=== PATIENT | female | born 1980 | race Caucasian/White ===

== ENCOUNTER → 2020-09-13 11:09 | Outpatient (CLI) | payer OTHER, SELFPAY ==
--- NOTE | ~2020-09-13 | MM_ITS ---
EXAMINATION: MM screening [facility] BI w everette HISTORY: Screening mammogram TECHNIQUE: Craniocaudal and mediolateral oblique 3-D tomosynthesis images were obtained and synthetic 2-D images were generated. CAD analysis was submitted and interpreted. COMPARISON: 07/14/2019 BREAST PARENCHYMAL COMPOSITION: The breasts are heterogeneously dense, which may obscure small masses . FINDINGS: There is no evidence of suspicious mass, calcification, or architectural distortion to sugg est malignancy in either breast. There has been no suspicious interval change. IMPRESSION: 1. No mammographic evidence of malignancy. 2. Recommend routine screening mammography in one year. BI-RADS Category 1: Negative Reviewed, dictated and finalized at location A. LABOR SUPERVISOR
== END ==
PROVIDERS: Visit Provider Nurse Practitioner
DX: Z12.31 Encounter for screening mammogram for malignant neoplasm of breast (principal)
CPT/HCPCS: 77063; 77067

== ENCOUNTER → 2021-11-14 13:37 | Outpatient (CLI) | payer OTHER, SELFPAY ==
--- NOTE | ~2021-11-14 | MM_ITS ---
EXAMINATION: MM screening [facility] BI w everette HISTORY: Screening TECHNIQUE: Craniocaudal and mediolateral oblique 3-D tomosynthesis images were obtained and synthetic 2-D images were generated. CAD analysis was submitted and interpreted. COMPARISON: Comparison to multiple prior studies sequentially, with oldest reviewed study dated 07/2019. BREAST PARENCHYMAL COMPOSITION: There are scattered areas of fibroglandular density. FINDINGS: There is no evidence of suspicious mass, calcification, or architectural distortion to sugg est malignancy in either breast. There has been no suspicious interval change. IMPRESSION: 1. No mammographic evidence of malignancy. 2. Recommend routine screening mammography in one year. BI-RADS Category 1: Negative Reviewed, dictated and finalized at location A. F APPRAISER
== END ==
PROVIDERS: PCP Physician Assistant; Visit Provider Nurse Practitioner
DX: Z12.31 Encounter for screening mammogram for malignant neoplasm of breast (principal)
CPT/HCPCS: 77063; 77067

== ENCOUNTER → 2022-07-06 13:30 | Outpatient (CLI) | payer OTHER, SELFPAY ==
--- NOTE | ~2022-07-06 | XR_ITS ---
EXAMINATION: XR knee LT min 4V, XR knee RT min 4V DATE: 07/06/2022 13:57 INDICATION: Bilateral knee pain TECHNIQUE: 1. Weight bearing anteroposterior and Saeed, sunrise, and flexed lateral views of the right knee were obtained 2. Weight bearing anteroposterior and Saeed, sunrise, and flexed lateral views of the left knee w ere obtained COMPARISON: None. FINDINGS: Normal alignment at both knees. No fracture. Small marginal osteophytes in all 3 compartments of both knees. There is mild joint space narrowing in the lateral compartment of the right knee with the kne e in the flexed position. Joint spaces and remaining compartments of both knees remain within normal limits. Subarticular cystlike changes seen along the left patellar apical ridge. Small bilateral knee joint effusions. Soft tissues are otherwise unremarkable. IMPRESSION: 1. 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 2. Small bilateral knee joint effusions. Reviewed, dictated and finalized at location A. IMPRESSION: 1. Mild tricompartmental osteoarthritis of both knees with most prominent joint space are at the lateral compartment of the right knee and with likely high-gr ki chondromalacia with subarticular cystlike changes along the apical ridge of the left patella. 2. Small bilateral knee joint effusions.
== END ==
PROVIDERS: PCP Physician Assistant; Visit Provider Physician Assistant
DX: M17.0 Bilateral primary osteoarthritis of knee (principal); M25.461 Effusion, right knee; M25.462 Effusion, left knee
CPT/HCPCS: 73564

== ENCOUNTER → 2023-01-22 11:25 | Outpatient (CLI) | payer OTHER, SELFPAY ==
--- NOTE | ~2023-01-22 | MM_ITS ---
EXAMINATION: MM screening [facility] BI w everette HISTORY: Screening TECHNIQUE: Craniocaudal and mediolateral oblique 3-D tomosynthesis images were obtained and synthetic 2-D images were generated. CAD analysis was submitted and interpreted. COMPARISON: Comparison to multiple prior studies sequentially, with oldest reviewed study dated 07/2019. BREAST PARENCHYMAL COMPOSITION: There are scattered areas of fibroglandular density. FINDINGS: There is no evidence of suspicious mass, calcification, or architectural distortion to sugg est malignancy in either breast. There has been no suspicious interval change. IMPRESSION: 1. No mammographic evidence of malignancy. 2. Recommend routine screening mammography in one year. BI-RADS Category 1: Negative Reviewed, dictated and finalized at location A.
== END ==
PROVIDERS: PCP Physician Assistant; Visit Provider Nurse Practitioner
DX: Z12.31 Encounter for screening mammogram for malignant neoplasm of breast (principal)
CPT/HCPCS: 77063; 77067

== ENCOUNTER 2024-02-02 07:31 | Outpatient (CLI) | payer OTHER, SELFPAY ==
--- NOTE | ~2024-02-02 | US_ITS ---
Pelvic ultrasound. Clinical History: Abnormal uterine bleeding Technique: Realtime transabdominal scanning of the pelvis was performed. Color flow Doppler and Doppl er spectral analysis were performed. Findings: The uterus is anteverted. The endometrial stripe has a thickness of 4 mm. IUD in satisfact ory position. No focal mass is identified. The right ovary measures 2.6 x 3.8 x 1.2 cm. No significant right ovarian or adnexal mass is seen. The left ovary measures 3.9 x 2.0 x 2.0 cm. No significant left ovarian or adnexal mass is seen. There is no evidence of free fluid in the cul de sac. Impression: IUD in place, otherwise unremarkable exam. Reviewed, dictated and finalized at location M. Impression: IUD in place, otherwise unremarkable exam.
== END 2024-02-02 07:32 ==
PROVIDERS: PCP Advanced Practice Midwife; Visit Provider Advanced Practice Midwife
DX: N93.8 Other specified abnormal uterine and vaginal bleeding (principal); Z97.5 Presence of (intrauterine) contraceptive device
CPT/HCPCS: 76856

== ENCOUNTER 2024-07-03 09:03 | Day surgery (SDC) | payer OTHER, SELFPAY ==
[2024-06-13 10:29] VITALS: BMI 30.7
[2024-06-18 11:33] VITALS: BMI 29.2
[2024-07-03 10:07] VITALS: BP 124/90; PULSE 71; RESP 15; TEMP 37.4; O2SAT 98
[2024-07-03] MEDS: LACTATED RINGERS 1,000 ML 150 ML IV CONT (10:12)
--- NOTE | 2024-07-03 10:14 | PM.HPGS ---
History of Present Illness History of Present Illness Consent: Risks, benefits, and alternatives have been discussed and questions answered. Patient agrees to proceed with procedure. Chief complaint: Screening for neoplasm of colon Narrative: Scott Tony is a 43 year old female presents for screening colonoscopy. Patient's current weight appetite and bowel movements are normal. Patient denies abdominal pain. She has had no bleeding. Family history is noncontributory. Review of Systems Review of Systems: All systems reviewed & are unremarkable except as noted in HPI and below PMFSH Social History Social History Smoking status: Never smoker Alcohol intake: current Alcohol use details: 1 per month Substance use type: does not use Living arrangements: with family Spiritual care concerns: No Meds Home Medications and Allergies Home Medications Medication Instructions Recorded Confirmed Type cetirizine 5 mg-pseudoephedrine ER 1 tablet PO BID 06/18/24 07/03/24 History 120 mg tablet,extended release,12hr (Zyrtec-D) ferrous sulfate 325 mg (65 mg 325 mg PO DAILY 06/18/24 07/03/24 History iron) tablet multivitamin with minerals-folic 1 tablet PO DAILY 06/18/24 07/03/24 History acid 0.4 mg tablet sertraline 100 mg tablet 100 mg PO DAILY 06/18/24 07/03/24 History Allergies Allergy/AdvReac Type Severity Reaction Status Date / Time No Known Allergies Allergy Verified 07/03/24 10:05 Vital Signs Vital Signs - 24 hr 07/03/24 10:07 Temperature 99.3 F Pulse Rate 71 Respiratory Rate 15 Blood Pressure 124/90 Pulse Oximetry 98 Oxygen Delivery Room Air Exam Narrative: Physical exam reveals patient signs stable. HEENT exam is unremarkable. Patient is anicteric. Lungs are clear to auscultation and percussion heart is without murmur or extra sounds. Abdomen bowel sounds are present soft nontender with no organomegaly. Digital external rectal exam normal. Assessment and Plan Assessment and plan (1) Screen for colon cancer: Code(s): Z12.11 - Encounter for screening for malignant neoplasm of colon Status: Acute Assessment and Plan: Patient presents today for screening colonoscopy. She appears to be at average risk colon polyps. Further recommendations may be given after endoscopy.
--- NOTE | 2024-07-03 10:42 | WPDANESEPPF ---
Anes - Initial Pre Proc Eval Procedure: Operation Date: 07/03/24 11:30 Proposed Procedures p Screening Colonoscopy - Evgeny Ludwig MD Date/Time: 07/03/24 10:42 Surgeon: Evgeny Ludwig MD Pre Op Diagnosis: Screening for neoplasm of colon Patient Data Age: 43 Gender: F Height: 1.65 m Weight: 82.9 kg Last Vital Signs Temp 37.4 C 07/03/24 10:07 Pulse 71 07/03/24 10:07 Resp 15 07/03/24 10:07 BP 124/90 07/03/24 10:07 Pulse Ox 98 07/03/24 10:07 O2 Del Method Room Air 07/03/24 10:07 Allergies Allergy/AdvReac Type Severity Reaction Status Date / Time No Known Allergies Allergy Verified 07/03/24 10:05 Home Medications Medication Instructions Recorded Confirmed Type cetirizine 5 mg-pseudoephedrine ER 1 tablet PO BID 06/18/24 07/03/24 History 120 mg tablet,extended release,12hr (Zyrtec-D) ferrous sulfate 325 mg (65 mg 325 mg PO DAILY 06/18/24 07/03/24 History iron) tablet multivitamin with minerals-folic 1 tablet PO DAILY 06/18/24 07/03/24 History acid 0.4 mg tablet sertraline 100 mg tablet 100 mg PO DAILY 06/18/24 07/03/24 History Patient hx anesthesia problems: none Family hx anesthesia problems: none Results Review: All pre-operative results and documents have been reviewed as part of the pre-operative evaluation. COUNTS INCLUDE 234 BEDS AT THE [facility] Past Medical History Medical History (Updated 07/03/24 @ 10:42 by Yobani Molina MD) Obesity Surgical History Surgical History (Updated 07/03/24 @ 10:43 by Yobani Molina MD) H/O arthroscopic knee surgery History of bladder surgery Social History Social History Smoking status: Never smoker Alcohol intake: current Alcohol use details: 1 per month Substance use type: does not use Living arrangements: with family Spiritual care concerns: No Anes - Eval Final PreProcedure Day of Procedure 07/03/24 10:42 Patient weight: obese Heart: regular rate and rhythm Lungs: clear to auscultation Airway: Mallampati scale class II Neurological: alert and oriented Last oral intake: >/= 8 hours ASA classification: II Emergent: no Anesthetic plan: proceed Anesthesia type and monitoring: general GIVS and standard monitoring Results Review: All pre-operative results and documents have been reviewed as part of the pre-operative evaluation. Informed Consent: The patient's anesthetic plan and its attendant risks and benefits were discussed with the patient/family/POA. Questions were solicited and answers provided to the satisfaction of the patient/family/POA.
[2024-07-03 11:05] VITALS: BP 114/72; PULSE 72; RESP 15; O2SAT 97
[2024-07-03 11:15] VITALS: BP 119/74; PULSE 75; RESP 15; O2SAT 98
[2024-07-03 11:25] VITALS: BP 117/84; PULSE 64; RESP 15; O2SAT 99
--- NOTE | 2024-07-03 11:27 | WPDANESPN ---
Anes - Prog Note Post-Op Date/Time: 07/03/24 11:27 Cardiovascular status: normal Respiratory status: normal Airway patency: baseline Mental status: baseline Post-Op hydration status: normal Vital Signs: Last Vital Signs Temp 37.4 C 07/03/24 10:07 Pulse 75 07/03/24 11:15 Resp 15 07/03/24 11:15 BP 119/74 07/03/24 11:15 Pulse Ox 98 07/03/24 11:15 O2 Del Method Room Air 07/03/24 11:15 Pain Score (VAS): 0/10 I/O: Intake & Output 07/02/24 07/03/24 07/03/24 23:59 07:59 15:59 Intake Total 200 Balance 200 Patient Feedback: Patient satisfied with anesthetic care.
== END 2024-07-03 11:43 | disposition home or self-care (01) ==
PROVIDERS: PCP Physician Assistant; Visit Provider Internal Medicine Gastroenterology
PROC: 0DJD8ZZ Inspection of Lower Intestinal Tract, Via Natural or Artificial Opening Endoscopic (ICD-10-PCS; CPT 45378; principal; 2024-07-03 11:30)
DX: Z12.11 Encounter for screening for malignant neoplasm of colon (principal)
CPT/HCPCS: 45378

== ENCOUNTER 2024-08-19 07:42 | Outpatient (CLI) | payer OTHER, SELFPAY ==
--- NOTE | ~2024-08-19 | MM_ITS ---
EXAMINATION: MM screening [facility] BI w everette HISTORY: Screening TECHNIQUE: Craniocaudal and mediolateral oblique 3-D tomosynthesis images were obtained and synthetic 2-D images were generated. CAD analysis was submitted and interpreted. COMPARISON: Comparison to multiple prior studies sequentially, with oldest reviewed study dated 07/2020. BREAST PARENCHYMAL COMPOSITION: Not dense: There are scattered areas of fibroglandular density. FINDINGS: There is no evidence of suspicious mass, calcification, or architectural distortion to sugg est malignancy in either breast. There has been no suspicious interval change. IMPRESSION: 1. No mammographic evidence of malignancy. 2. Recommend routine screening mammography in one year. BI-RADS Category 1: Negative Reviewed, dictated and finalized at location B.
== END 2024-08-19 07:43 | disposition home or self-care (01) ==
LOC: MICIMG 07:42
PROVIDERS: PCP Physician Assistant; Visit Provider Obstetrics & Gynecology Gynecology
DX: Z12.31 Encounter for screening mammogram for malignant neoplasm of breast (principal)
CPT/HCPCS: 77063; 77067